=== PATIENT | female | born 1980 | race Caucasian/White ===

== ENCOUNTER → 2021-04-01 | Outpatient (REF) | payer MEDICARE ==
[2021-04-01 14:40] LABS: APPEARANCE, URINE CLEAR (CLEAR); BACTERIA, URINE AUTO NEGATIVE (NEGATIVE); BILIRUBIN, URINE AUTO NEGATIVE (NEGATIVE); BLOOD, URINE BLOOD 1+ (NEGATIVE); COLOR, URINE STRAW (YELLOW); GLUCOSE, URINE (UA) AUTO NEGATIVE (NEGATIVE); KETONE, URINE AUTO NEGATIVE (NEGATIVE); LEUKOCYTE ESTERASE, URINE AUTO NEGATIVE (NEGATIVE); NITRITE, URINE AUTO NEGATIVE (NEGATIVE); PROTEIN, URINE AUTO NEGATIVE (NEGATIVE); RBC, URINE AUTO 0 /HPF (0-3); SPECIFIC GRAVITY URINE AUTO 1.006 (1.002-1.035); SQUAMOUS EPITHELIAL CELL UR AU 2 /HPF (0-6); UROBILINOGEN, URINE AUTO 0.2 mg/dL (0.0-2.0); WBC, URINE AUTO 0 /HPF (0-3)
== END ==
LOC: M SMT 13:35
PROVIDERS: ATTEND Nurse Practitioner Women's Health
DX: N13.2 Hydronephrosis with renal and ureteral calculous obstruction (principal)
CPT/HCPCS: 81001; 87086; G0463

== ENCOUNTER → 2021-08-24 | Outpatient (CLI) | payer MEDICARE | LOC: M RAD 09:53 | PROVIDERS: ATTEND Internal Medicine Nephrology | DX: N20.0 Calculus of kidney (principal) ==

== ENCOUNTER → 2024-11-16 | Day surgery (SDC) | payer MEDICARE ==
[~2024-11-16] VITALS: Ht 170.2 cm; Wt 114.1 kg
[~2024-11-16] MED LIST: ACETAMINOPHEN 1000MG/100ML IV BAG As Ordered ONE; COLA100C5 PO; HOME MED LIST COMPLETE! XX SCH; HYDROMORPHONE HCL 0.5 MG/ 0.5 ML SYRINGE IV PRN; LIDOCAINE 2% 100MG/5ML SDV (FOR ANES.) As Ordered ONE; LR 1,000 ML IV SCH; MEPERIDINE 25 MG/ML 1ML VIAL IV PRN; MIDAZOLAM INJ 2MG/2ML VIAL As Ordered ONE; NALBUPHINE HCL 10 MG/ML 1ML AMP IV PRN; ONDANSETRON 4MG 2ML VIAL As Ordered ONE; ONDANSETRON 4MG 2ML VIAL IV PRN; PROMETHAZINE 25MG/ML 1ML VIAL IV PRN; fentaNYL 100 MCG/2 ML INJECTION As Ordered ONE; fentaNYL 100 MCG/2 ML INJECTION IV PRN; oxyCODONE 5MG TAB PO PRN; propofoL 200 MG/20 ML VIAL As Ordered ONE
[2024-11-16] MEDS: KETOROLAC 30 MG/ML 1ML VIAL IV ONE (18:08)
[2024-11-16] MEDS: LIDOCAINE 2% 5ML JELLY UROJET As Ordered ONE (19:00)
[2024-11-16] MEDS: ISOVUE-300 61% 100ML VIAL As Ordered ONE (19:06)
[2024-11-16 19:55] VITALS: BP 156/82; TEMP 97; O2SAT 99
== END | disposition home or self-care (01) ==
LOC: M ED 17:15 → M SDC 17:50 → M ED INP 18:06 → UNDOADMIN 18:06
PROVIDERS: ATTEND Urology
DX: O99.893 Other specified diseases and conditions complicating puerperium (principal); N20.1 Calculus of ureter; N13.30 Unspecified hydronephrosis; N23 Unspecified renal colic; R11.2 Nausea with vomiting, unspecified; I48.91 Unspecified atrial fibrillation; Z87.442 Personal history of urinary calculi; J45.909 Unspecified asthma, uncomplicated; Z88.2 Allergy status to sulfonamides; Z88.0 Allergy status to penicillin; Z88.1 Allergy status to other antibiotic agents; Z88.8 Allergy status to other drugs, medicaments and biological substances; Z88.4 Allergy status to anesthetic agent
CPT/HCPCS: 52332; 74420; 87086; 96374; 99284; C1769; C2617; J0131; J1885; J2250; J2405; J3010; Q9967

== ENCOUNTER → 2024-12-09 | Outpatient (REF) | payer MEDICARE ==
[~2024-12-09] MED LIST changes: -ACETAMINOPHEN 1000MG/100ML IV BAG As Ordered ONE; -HOME MED LIST COMPLETE! XX SCH; -HYDROMORPHONE HCL 0.5 MG/ 0.5 ML SYRINGE IV PRN; -LIDOCAINE 2% 100MG/5ML SDV (FOR ANES.) As Ordered ONE; -LR 1,000 ML IV SCH; -MEPERIDINE 25 MG/ML 1ML VIAL IV PRN; -MIDAZOLAM INJ 2MG/2ML VIAL As Ordered ONE; -NALBUPHINE HCL 10 MG/ML 1ML AMP IV PRN; -ONDANSETRON 4MG 2ML VIAL As Ordered ONE; -ONDANSETRON 4MG 2ML VIAL IV PRN; -PROMETHAZINE 25MG/ML 1ML VIAL IV PRN; -fentaNYL 100 MCG/2 ML INJECTION As Ordered ONE; -fentaNYL 100 MCG/2 ML INJECTION IV PRN; -oxyCODONE 5MG TAB PO PRN; -propofoL 200 MG/20 ML VIAL As Ordered ONE
== END ==
LOC: M SMT 13:16
PROVIDERS: ATTEND Urology
DX: N20.0 Calculus of kidney (principal)